=== PATIENT | female | born 1940 | race Hispanic/Latino ===

== ENCOUNTER → 2018-04-27 | Outpatient (CLI) | payer MEDICARE ==
--- NOTE | 2018-04-27 10:30 | Diagnostic Imaging Report ---
EXAMINATION: PA and lateral views of the chest. COMPARISON: None CLINICAL HISTORY: Chest pain, shortness of breath DISCUSSION: Lungs are well-inflated and without focal consolidation or pneumothorax. Trace blunting of the left posterior costophrenic sulcus may reflect pleural thickening or a trace effusion. Cardiomediastinal contour is within normal limits. No acute osseous abnormality. Surgical clips project over the upper abdomen on the lateral radiograph, likely related to prior cholecystectomy. IMPRESSION: Trace left pleural effusion versus focal basal pleural thickening. Otherwise no acute cardiopulmonary abnormality. Signed by: Dr. William Somers M.D. on 04/27/2018 10:27 AM
--- NOTE | 2018-04-27 11:16 | Diagnostic Imaging Report ---
EXAM: Complete Abdominal Ultrasound INDICATION: ^UPPER ABDOMINAL PAIN COMPARISON: None. TECHNIQUE: Transverse and longitudinal images of the upper abdomen were obtained. FINDINGS: Liver: Size: 15.5 cm in the right midclavicular line, normal Appearance: Increased echogenicity, smooth contour Mass: 4.8 x 3.5 x 3.8 cm anechoic cyst in the left hepatic lobe with partial thickness septations. No mural nodularities. Spleen: Size: 9.0 cm in length, normal Echogenicity: Normal Mass: No focal masses Gallbladder: Cholecystectomy Bile Ducts: Intrahepatic Ducts: No dilatation Extrahepatic Ducts: Common bile duct measures 0.3 cm, no dilatation Pancreas: Incompletely visualized due to overlying bowel gas, but no abnormality identified involving the visualized portions of the pancreas. Right Kidney: Size: 9.5 x 4.4 x 4.6 cm Echogenicity: Normal Parenchymal thickness: Normal Collecting System: No hydronephrosis Stone: None Cyst/Mass: None Left Kidney: Size: 10.2 x 4.9 x 4.1 cm Echogenicity: Normal Parenchymal thickness: Normal Collecting System: No hydronephrosis Stone: None Cyst/Mass: None Vessels: Aorta: Visualized portions are normal Inferior Vena Cava: Visualized portions are normal Main Portal Vein: 1.0 cm, normal size with hepatopetal flow. Free Fluid: No ascites or pleural effusion IMPRESSION: Diffuse hepatic steatosis without focal mass. 4.8 cm complicated left hepatic lobe cyst. Signed by: Dr. Aaron Rain M.D. on 04/27/2018 11:13 AM
== END ==
LOC: US 09:38
PROVIDERS: ATTEND Nurse Practitioner Family
DX: R07.9 Chest pain, unspecified (principal); R06.02 Shortness of breath; R10.10 Upper abdominal pain, unspecified
CPT/HCPCS: 71046; 76700

== ENCOUNTER → 2018-05-12 | Outpatient (CLI) | payer MEDICARE | LOC: CT 15:40 | PROVIDERS: ATTEND Internal Medicine Gastroenterology | DX: C22.0 Liver cell carcinoma (principal) ==

== ENCOUNTER 2018-11-13 20:43 | Emergency (ER) | payer MEDICARE, OTHER ==
[~2018-11-13] VITALS: Ht 152.4 cm; Wt 63.5 kg
--- OUTSIDE RECORDS SUMMARY | 2018-11-13 20:47 | XMS REPORT ---
Author Author [facility] Organization [facility] Address Unknown Phone Unavailable Care Team Providers Care Seasonal Recruiter Name Role Phone Eva KISER [facility] RANJAN Unavailable Unavailable Payers Payer Name Policy Type Policy Number Effective Date Expiration Date Problems This patient has no known problems. Allergies, Adverse Reactions, Alerts This patient has no known allergies or adverse reactions. Medications This patient has no known medications. Results Test Description Test Time Test Comments Text Results Atomic Results Result Comments - CT ABDOMEN W W/O CONTRAST 2018-05-15 20:16:00 Patient Name: LAMAR SEWELL Unit No: [id number] EXAMS: CPT CODE: [id number] CT ABDOMEN W W/O CONTRAST 95555 C3 TIME OF STUDY: 05/15/2018 1:36 PM REASON FOR EXAM: LIVER CELL CARCINOMA COMPARISON: None. TECHNIQUE: Helical pre and post contrast enhanced images were obtained through the abdomen and pelvis, hepatic protocol. Sagittal and coronal reformats were obtained and reviewed. One or more of the following radiation dose reduction techniques was used: automated exposure control, adjustment of mA and/or KV according to patient size, and/or utilization of iterative reconstruction technique. FINDINGS: CT Abdomen: The included lung bases are clear. The liver is enlarged, measuring 20.3 cm in craniocaudal dimension. There is diffuse fatty infiltration of the liver. There is a nonenhancing cystic structure in the left hepatic lobe measuring 4.7 x 4.2 cm. Gallbladder is surgically absent with mild postcholecystectomy du ctal ectasia. A 7 mm linear focus of hyperenhancement in the right hepatic lobe only seen on arterial phase imaging likely represents a focus of transient hepatic attenuation difference, as this does not persist on delayed imaging. The pancreas, kidneys, adrenal glands and spleen all have normal appearance. There is no mesenteric or retroperitoneal adenopathy. The bowel loops are nondilated. A normal appendix is not visualized. However, there is no inflammation in the right lower quadrant. There is no free fluid or free air. Vascular calcifications involving arterial vessels are noted. Degenerative features involve the osseous structures. CT Pelvis: The ureters and bladder are grossly normal. There is no free air, free fluid, loculated collection or adenopathy in the pelvis. The osseous and soft tissue structures are age appropriate. IMPRESSION: 1. Hepatomegaly with hepatic steatosis. 4.7 cm left hepatic lobe cyst. Subcentimeter focus of transient hepatic attenuation difference. No mass lesions identified. at 2016 Reported and signed by: Javan Ronquillo MD [facility] NAME: LAMAR SEWELL Giuseppe PHYS: Preet Quiroz MD [place] [id number] : 1940 AGE: 78 SEX: F LOC: [employer] PHONE #: [phone] EXAM DATE: 05/15/2018 STATUS: REG CLI FAX #: [phone] RAD #: D/C DT PAGE 1 Signed Report (CONTINUED) Patient Name: LAMAR SEWELL Unit No: [id number] EXAMS: CPT CODE: [id number] CT ABDOMEN W W/O CONTRAST 97952 <Continued> CC: AGUSTO ZAPATA; Arya Cruz MD; Preet Sharp; Melani Ricardo Technologist: RT Andres(R) CTDI: DLP: Trnscrpt: 05/15/2018 (2016) [email or web address] [facility] NAME: LAMAR SEWELL Giuseppe PHYS: [place] [address] : 1940 AGE: 78 SEX: F LOC: [facility] PHONE #: [phone] EXAM DATE: 05/15/2018 STATUS: REG CLI FAX #: [phone] RAD #: D/C DT PAGE 2 Signed Report Patient Name: LAMAR SEWELL Unit No: [id number] EXAMS: CPT CODE: [id number] CT ABDOMEN W W/O CONTRAST 94794 <Continued> Orig Print D/T: S: 05/15/2018 (2019) [facility] NAME: LAMAR SEWELL [address] [place] PHYS: [place] [address] : 1940 AGE: 78 SEX: F LOC: [facility] PHONE #: [phone] EXAM DATE: 05/15/2018 STATUS: REG CLI FAX #: [phone] RAD #: D/C DT PAGE 3 Signed Report US ABDOMEN COMPLETE 2018-04-27 11:11:00 [place] [address] Patient Name: LAMAR SEWELL MR #: [id number] : 1940 Age/Sex: 78/F Req #: [id number] Adm Physician: Ordered by: RANJAN KISER [facility] Report #: [id number] Location: US Room/Bed: Procedure: [id number] US/US ABDOMEN COMPLETE Exam Date: Exam Time: REPORT STATUS: Signed EXAM: Complete Abdominal Ultrasound INDICATION: UPPER ABDOMINAL PAIN COMPARISON: None. TECHNIQUE: Transverse and longitudinal images of the upper abdomen were obtained. FINDINGS: Liver: Size: 15.5 cm in the right midclavicular line, normal Appearance: Increased echogenicity, smooth contour Mass: 4.8 x 3.5 x 3.8 cm anechoic cyst in the left hepatic lobe with partial thickness septations. No mural nodularities. Spleen: Size: 9.0 cm in length, normal Echogenicity: Normal Mass: No focal masses Gallbladder: Cholecystectomy Bile Ducts: Intrahepatic Ducts: No dilatation Extrahepatic Ducts: Common bile duct measures 0.3 cm, no dilatation Pancreas: Incompletely visualized due to overlying bowel gas, but no abnormality identified involving the visualized portions of the pancreas. Right Kidney: Size: 9.5 x 4.4 x 4.6 cm Echogenicity: Normal Parenchymal thickness: Normal Collecting System: No hydronephrosis Stone: None Cyst/Mass: None Left Kidney: Size: 10.2 x 4.9 x 4.1 cm Echogenicity: Normal Parenchymal thickness: Normal Collecting System: No hydronephrosis Stone: None Cyst/Mass: None Vessels: Aorta: Visualized portions are normal Inferior Vena Cava: Visualized portions are normal Main Portal Vein: 1.0 cm, normal size with hepatopetal flow. Free Fluid: No ascites or pleural effusion IMPRESSION: Diffuse hepatic steatosis without focal mass. 4.8 cm complicated left hepatic lobe cyst. Signed by: Dr. Aaorn Meneses M.D. on 04/27/2018 11:13 AM Dictated By: AARON MEENSES MD 1113 Transcribed By: COLLEEN on 04/27/18 1113 COPY TO: RANJAN KISER [facility] CHEST 2 VIEWS 2018-04-27 10:25:00 [place] [address] Patient Name: LAMAR SEWELL MR #: [id number] : 1940 Age/Sex: 78/F Req #: [id number] Adm Physician: Ordered by: RANJAN KISER [facility] Report #: [id number] Location: Room/Bed: Procedure: [id number] DX/CHEST 2 VIEWS Exam Date: 04/27/18 Exam Time: 0946 REPORT STATUS: Signed EXAMINATION: PA and lateral views of the chest. CO MPARISON: None CLINICAL HISTORY: Chest pain, shortness of breath DISCUSSION: Lungs are well-inflated and without focal consolidation or pneumothorax. Trace blunting of the left posterior costophrenic sulcus may reflect pleural thickening or a trace effusion. Cardiomediastinal contour is within normal limits. No acute osseous abnormality. Surgical clips project over the upper abdomen on the lateral radiograph, likely related to prior cholecystectomy. IMPRESSION: Trace left pleural effusion versus focal basal pleural thickening. Otherwise no acute cardiopulmonary abnormality. Signed by: Dr. Judit Mace M.D. on 04/27/2018 10:27 AM Dictated By: JUDIT MACE MD 1027 Transcribed By: COLLEEN on 04/27/18 1027 COPY TO: RANJAN KISER [facility] MAMMO SCREENING CLINICAL INDICATION: This is a routine annual screening mammogram. The patient has no complaints.MODALITY: Siemens Inspiration Full Field Digital MammographyTECHNIQUE: Digital acquisition of the breasts is performed on the ACR accredited Full Field Digital Mammography Unit. Computer Assisted Detection (CAD) is then accomplished using Doblet Technology. Imaging of the bilateral breasts is performed.FINDINGS:COMPARISON STUDY: NoneThere are scattered fibroglandular tissues in both breasts.There are no suspicious masses, calcifications or architectural distortion in either breast.IMPRESSION:No mammo graphic evidence of malignancy. RECOMMENDATION: Routine annual screening mammogram in 1 year is recommended.Category: BIRADS 1 - Negative. For internal use only BIRAD:S1 CR - XRAY XRAY DEXA BONE DENSITY CLINICAL INDICATION: Z13.820 Encounter for screening for osteoporosis TECHNIQUE: Bone densitometry is performed. Imaging of the spine and left hip are performed. Quantitative analysis is accomplished.FINDINGS:COMPARISON: NoneThe BMD at the left femoral neck is 0.869 gms/cm.sq. This is consistent with young adult T-score of -0.9 and age matched Z-score of 1.1.Average bone mineral density of L1 - L4 is 0.920 gms/cm.sq. This is consistent with young adult T-score of -2.2 and age matched Z-score of -0.1.IMPRESSION:WHO diagnostic category is osteopenia based upon lumbar spine.Recommendation: 2-year follow-up
--- OUTSIDE RECORDS SUMMARY | 2018-11-13 20:47 | XMS REPORT | Clinical Summary ---
Author Author [facility] Organization [facility] Address Unknown Phone Unavailable Care Team Providers Care Engine Setter Name Role Phone Estephania Johnson MD PCP Allergies No Known Allergies Medications End Date Status Medication Sig Dispensed Refills Start Date 04/18/2018 ondansetron (ZOFRAN) 4 MG Take 1 tablet 20 tablet 0 tablet (4 mg total) 9 by mouth every 6 (six) hours for 5 days. Active Problems Not on file Encounters Care Team Description Date Type Specialty Hugo Warner MD Generalized abdominal pain (Primary Dx); Non-intractable vomiting with nausea, unspecified vomiting type 04/13/2018 Emergency Emergency Medicine after 11/12/2017 Social History Date Tobacco Use Types Packs/Day Years Used Never Smoker Smokeless Tobacco: Never Used Alcohol Use Drinks/Week oz/Week Comments No Alcohol Habits Answer Date Recorded How often do you have a drink containing alcohol? Never 04/13/2018 How many drinks containing alcohol do you have on Not asked a typical day when you are drinking? How often do you have six or more drinks on one Not asked occasion? Sex Assigned at Date Recorded Not on file Industry Job Start Date Occupation Not on file Not on file Not on file Travel End Travel History Travel Start No recent travel history available. Last Filed Vital Signs Time Taken Vital Sign Reading 04/13/2018 11:11 PM HOSIERY PAIRER Blood Pressure 168/70 04/13/2018 11:11 PM HOSIERY PAIRER Pulse 70 04/13/2018 4:55 PM HOSIERY PAIRER Temperature 36.6 C (97.9 F) 04/13/2018 11:11 PM HOSIERY PAIRER Respiratory Rate 16 04/13/2018 11:11 PM HOSIERY PAIRER Oxygen Saturation 99% - Inhaled Oxygen - Concentration - Weight - 04/13/2018 4:55 PM HOSIERY PAIRER Height 152.4 cm (5') - Body Mass Index - Plan of Treatment Health Maintenance Due Date Last Done Comments COLONOSCOPY SCREENING 1992 SHINGLES VACCINES (#1) 1992 65+ PNEUMOCOCCAL VACCINE 2007 (1 of 2 - PCV13) INFLUENZA VACCINE 11/05/2018 Procedures Comments Procedure Name Priority Date/Time Associated Diagnosis ED REFERRAL TO [facility] 04/13/2018 EPISCOPALIAN PHYSICIAN 10:59 PM HOSIERY PAIRER ORGANIZATION CT ABDOMEN PELVIS W STAT 04/13/2018 CONTRAST 10:21 PM HOSIERY PAIRER HCG QUALITATIVE, URINE STAT 04/13/2018 SCREEN 8:08 PM HOSIERY PAIRER URINALYSIS SCREEN AND STAT 04/13/2018 MICROSCOPY, WITH REFLEX 8:08 PM HOSIERY PAIRER TO CULTURE URINE CULTURE STAT 04/13/2018 8:00 PM HOSIERY PAIRER ESTIMATED GFR STAT 04/13/2018 5:35 PM HOSIERY PAIRER LIPASE LEVEL STAT 04/13/2018 5:35 PM HOSIERY PAIRER COMPREHENSIVE METABOLIC STAT 04/13/2018 PANEL 5:35 PM HOSIERY PAIRER HC COMPLETE BLD COUNT STAT 04/13/2018 W/AUTO DIFF 5:35 PM HOSIERY PAIRER ECG 12-LEAD STAT 04/13/2018 5:01 PM HOSIERY PAIRER after 11/12/2017 Results * CT Abdomen Pelvis W Contrast (04/13/2018 10:21 PM HOSIERY PAIRER) Specimen Narrative Performed At Examination:CT ABDOMEN PELVIS W CONTRAST [facility] Clinical History: Nauseavomiting, Abdominal painLUQsuprapubic Comparison: None. Findings: CT scans are performed using radiation dose reduction techniques.Technical factors are evaluated and adjusted to ensure appropriate moderation of exposure.Automated dose management technology is applied to adjust radiation exposure while achieving a diagnostic quality image. CT scan of the abdomen and pelvis was performed after intravenous contrast. The liver is diffusely low in density. There is a large cyst in the left lobe of the liver measuring 4.7 cm. The spleen, pancreas, and adrenal glands are unremarkable. The patient is status post cholecystectomy. The kidneys show no hydronephrosis or urinary calculus. Right tiny subcentimeter cyst is noted. Moderate fecal material is seen throughout the colon. No bowel wall thickening or fat stranding is seen. The appendix is not visualized. No bowel dilatation is seen. No free air or fluid is seen. Urinary bladder is unremarkable. The visualized lung bases are clear. IMPRESSION: 1. Fatty liver. 2. Otherwise no acute abnormality identified in abdomen or pelvis. [facility]-[id number] Procedure Note Hm Interface, Radiology Results Incoming - 04/13/2018 10:33 PM HOSIERY PAIRER Examination: CT ABDOMEN PELVIS W CONTRAST Clinical History: Nausea vomiting, Abdominal pain LUQ suprapubic Comparison: None. Findings: CT scans are performed using radiation dose reduction techniques. Technical factors are evaluated and adjusted to ensure appropriate moderation of exposure. Automated dose management technology is applied to adjust radiation exposure while achieving a diagnostic quality image. CT scan of the abdomen and pelvis was performed after intravenous contrast. The liver is diffusely low in density. There is a large cyst in the left lobe of the liver measuring 4.7 cm. The spleen, pancreas, and adrenal glands are unremarkable. The patient is status post cholecystectomy. The kidneys show no hydronephrosis or urinary calculus. Right tiny subcentimeter cyst is noted. Moderate fecal material is seen throughout the colon. No bowel wall thickening or fat stranding is seen. The appendix is not visualized. No bowel dilatation is seen. No free air or fluid is seen. Urinary bladder is unremarkable. The visualized lung bases are clear. IMPRESSION: 1. Fatty liver. 2. Otherwise no acute abnormality identified in abdomen or pelvis. [facility]-[id number] Performing Organization Address City/State/Zipcode Phone Number [facility] [address] [place] [address] * Urinalysis screen and microscopy, with reflex to culture (04/13/2018 8:08 PM HOSIERY PAIRER) Specimen site Clean catch [facility] Color, UA Straw [facility] Appearance, UA Clear [facility] Specific 1.013 1.001 - 1.035 [place] gravity, [facility] pH, UA 5.0 5.0 - 8.5 [facility] Protein, UA Negative Negative [facility] Glucose, UA Negative Negative [facility] Ketones, UA Negative Negative [facility] Bilirubin, UA Negative Negative [facility] Blood, UA Negative Negative [facility] Nitrite, UA Negative Negative [facility] Urobilinogen, <2.0 <2.0 [place] UA [facility] Leukocyte Negative Negative [place] esterase, UA [facility] Epithelial <1 /HPF [place] cells, [facility]A [facility] WBC, UA 2 0 - 4 /HPF [facility] RBC, UA 1 0 - 5 /HPF [facility] Bacteria, UA Few None seen [facility] Yeast, UA None seen [facility] Yeast with None seen [place] pseudohyphae, [facility] Specimen Urine Performing Organization Address City/[facility] Phone Number [facility] [place] [address] PATHOLOGY AND GENOMIC MEDICINE [address] * hCG qualitative, urine screen (04/13/2018 8:08 PM HOSIERY PAIRER) Pathologist [facility] hCG NegativeComment: Sensitivity [place] qualitative, of HCG test: 25 mIU/mL [facility] Specimen Urine Performing Organization Address [facility] [place] [place] Phone Number [facility] [place] [address] PATHOLOGY AND [facility] MEDICINE [address] * Urine culture (04/13/2018 8:00 PM HOSIERY PAIRER) [facility] Urine culture SEE COMMENTComment: [place] Bacteriuria screen negative. [facility] Specimen Performing Organization Address [facility] [place] [place] Phone Number [facility] [place] [address] PATHOLOGY AND [facility] MEDICINE [address] * Estimated GFR (04/13/2018 5:35 PM HOSIERY PAIRER) [facility] Estimated GFR 74 mL/min/1.73 m2 [place] Comment: [facility] rpretation G1 >=90 Normal or high G2 60-89Mildly decreased [id number] Mildly to moderately decreased [id number] Moderately to severely decreased G4 15-29Severely decreased G5 <15Kidney failure The eGFR was calculated using the Chronic Kidney Disease Epidemiology Collaboration (CKD-EPI) equation. Interpretation is based on recommendations of the National Kidney Foundation-Kidney Disease Outcomes Quality Initiative (NKF-KDOQI) published in 2014. Specimen Plasma specimen Performing Organization Address City/[facility]/Zipcode Phone Number [facility] DEPARTMENT OF [address] [place] [address] PATHOLOGY AND [facility] MEDICINE [address] * CBC with platelet and differential (04/13/2018 5:35 PM HOSIERY PAIRER) Pathologist [facility] WBC 7.43 4.50 - 11.00 k/uL [facility] RBC 4.62 4.20 - 5.50 m/uL [facility] HGB 14.5 12.0 - 16.0 g/dL [facility] HCT 43.6 37.0 - 47.0 % [facility] MCV 94.4 82.0 - 100.0 fL [facility] MCH 31.4 27.0 - 34.0 pg [facility] MCHC 33.3 31.0 - 37.0 g/dL [facility] RDW - SD 43.8 37.0 - 55.0 fL [facility] MPV 10.9 8.8 - 13.2 fL [facility] Platelet count 280 150 - 400 k/uL [facility] Nucleated RBC 0.00 /100 WBC [facility] Neutrophils 51.6 39.0 - 69.0 % [facility] Lymphocytes 37.6 25.0 - 45.0 % [facility] Monocytes 8.5 0.0 - 10.0 % [facility] Eosinophils 1.5 0.0 - 5.0 % [facility] Basophils 0.7 0.0 - 1.0 % [facility] Immature 0.1Comment: "Immature 0.0 - 1.0 % [place] granulocytes granulocytes" (promyelocytes, EPISCOPALIAN myelocytes, metamyelocytes) HOSPITAL Specimen Blood Performing Organization Address City/State/Zipcode Phone Number [facility] [place] [address] PATHOLOGY AND [facility] MEDICINE [address] * Lipase level (04/13/2018 5:35 PM HOSIERY PAIRER) Pathologist [facility] Lipase 165 (H) 13 - 60 U/L [facility] Specimen Plasma specimen Performing Organization Address City/[facility]/Zipcode Phone Number [facility] DEPARTMENT [address] [address] PATHOLOGY AND GENOMIC MEDICINE [address] * Comprehensive metabolic panel (04/13/2018 5:35 PM HOSIERY PAIRER) Sodium 137 135 - 148 mEq/L [facility] Potassium 5.0 3.5 - 5.0 mEq/L [facility] Chloride 100 98 - 112 mEq/L [facility] CO2 27 24 - 31 mEq/L [facility] Anion gap 10@ANIO 7 - 15 mEq/L [facility] BUN 15 8 - 23 mg/dL [facility] Creatinine 0.78 0.50 - 0.90 mg/dL [facility] Glucose 131 (H) 65 - 99 mg/dL [facility] Calcium 9.9 8.8 - 10.2 mg/dL [facility] Protein 7.7 6.3 - 8.3 g/dL [place] Comment: [facility] 4.6-7.0 g/dL 1 week 4.4-7.6 g/dL 7 months-1year 5.1-7.3 g/dL 1-2 years5.6-7 .5 g/dL >3 years6.0-8 .0 g/dL 18-150 6.3-8.3 g/dL Albumin 3.9 3.5 - 5.0 g/dL [facility] A/G ratio 1.0 0.7 - 3.8 [facility] Alkaline 66 35 - 104 U/L [place] phosphatase [facility] AST 28 10 - 35 U/L [facility] ALT 44 5 - 50 U/L [facility] Total bilirubin 0.3 0.0 - 1.2 mg/dL [facility] Specimen Plasma specimen Performing Organization Address City/State/Zipcode Phone Number [facility] DEPARTMENT OF [address] [place] [address] PATHOLOGY AND GENOMIC MEDICINE [address] * ECG 12 lead (04/13/2018 5:01 PM HOSIERY PAIRER) Ventricular 74 [facility] MUSE rate Atrial rate 74 [facility] MUSE WI interval 158 [facility] M[facility] QRSD interval 68 [facility] MUSE QT interval 398 [facility] QTC interval 441 [facility] MUSE P axis 1 67 [facility] MUSE QRS axis 1 -1 [facility] MUSE T wave axis 46 [facility]USE EKG impression Normal sinus rhythm-Low [facility] M[facility] voltage QRS-Borderline ECG-- Specimen Narrative Performed At Performing Organization Address City/State/Zipcode Phone Number [facility] [address] [place] [address] after 11/12/2017 Insurance Type Payer Benefit Subscriber ID Effective Phone Address Plan / Dates Group HMO UHC MEDICARE UHC xxxxxxxxx [id number] [employer] (MEDICARE- MEDICAID PLAN) Advance Directives Patient has advance care planning documents on file. For more information, talat aguilar contact: Chente Pemberton [address] [place] [address]
--- OUTSIDE RECORDS SUMMARY | 2018-11-13 20:47 | XMS REPORT | Clinical Summary ---
Author Author [facility] Address Unknown Phone Unavailable Care Team Providers Care Veneer Glue Spreader Name Role Phone PCP Unavailable Allergies Not on File Medications Not on file Active Problems Not on file Social History Date Tobacco Use Types Packs/Day Years Used Never Assessed Sex Assigned at Date Recorded Not on file Industry Job Start Date Occupation Not on file Not on file Not on file Travel End Travel History Travel Start No recent travel history available. Last Filed Vital Signs Not on file Plan of Treatment Not on file Results Not on fileafter 11/12/2017 Insurance Payer Benefit Subscriber ID Type Phone Address Plan / Group OTHER-COMMERCIAL GENERIC xxxxxxxxx COMMERCIAL OTHER-COMMERCIAL GENERIC xxxxxxxxx COMMERCIAL [id number] [facility] (Home) [id number] [place] [id number]
[2018-11-13 21:23] LABS: BASOPHILS % 0.5 % (0.0-1.0); EOSINOPHILS # (AUTO) 0.1 (0.0-0.4); EOSINOPHILS % 1.4 % (0.0-6.0); HEMATOCRIT 42.5 % (34.2-44.1); HEMOGLOBIN 14.8 g/dL (12.0-16.0); LYMPHOCYTES % 38.4 % (18.0-39.1); MEAN CORPUSCULAR HEMOGLOBIN 31.7 pg (28-32); MEAN CORPUSCULAR HGB CONC 34.8 g/dL (31-35); MONOCYTES # (AUTO) 0.6 (0.2-0.8); MONOCYTES % 7.6 % (4.4-11.3); NEUTROPHILS # (AUTO) 4.1 (2.1-6.9); NEUTROPHILS % 51.8 % (38.7-80.0); PLATELET COUNT 268 x10e3/uL (140-360); RED BLOOD COUNT 4.67 x10e6/uL (3.6-5.1); RED CELL DISTRIBUTION WIDTH 12.7 % (11.7-14.4)
[2018-11-13 21:24] LABS: BILIRUBIN,URINE NEGATIVE (NEGATIVE); CLARITY,URINE CLEAR (CLEAR); COLOR,URINE YELLOW (YELLOW); KETONES,URINE NEGATIVE (NEGATIVE); LEUKOCYTE ESTERASE ,URINE SMALL (NEGATIVE); NITRITE,URINE NEGATIVE (NEGATIVE); PROTEIN,URINE DIPSTICK NEGATIVE (NEGATIVE); URINE UROBILINOGEN 0.2 mg/dL (0.2 - 1)
[2018-11-13 21:44] LABS: BACTERIA,URINE FEW /HPF; EPITHELIAL CELLS,URINE FEW /LPF; INR 0.88; PROTHROMBIN TIME 12.4 seconds (11.9-14.5)
[2018-11-13 21:45] LABS: MUCUS,URINE FEW (RARE); PARTIAL THROMBOPLASTIN TIME 27.1 seconds (23.8-35.5)
[2018-11-13 21:55] LABS: ALANINE AMINOTRANSFERASE 48 IU/L (0-55); ALBUMIN/GLOBULIN RATIO 1.3 (0.8-2.0); ALKALINE PHOSPHATASE 72 IU/L (40-150); ANION GAP 13.8 mmol/L (8-16); BLOOD UREA NITROGEN 13 mg/dL (7-26); BUN/CREATININE RATIO 16 (6-25); CALCIUM 9.3 mg/dL (8.4-10.2); CARBON DIOXIDE 24 mmol/L (22-29); CHLORIDE 106 mmol/L (98-107); CREATINE KINASE 86 IU/L (29-168); EST GLOMERULAR FILTRATION RATE > 60 ML/MIN (60-); GLUCOSE 128 mg/dL (74-118); LIPASE 44 U/L (8-78); POTASSIUM 3.8 mmol/L (3.5-5.1); SODIUM 140 mmol/L (136-145)
[2018-11-13] MEDS ORDERED: SODIUM CHLORIDE 0.9% 50ML 50 ML ONE (22:07)
[2018-11-13] MEDS ORDERED: IOPAMIDOL 370 MG/ML 200 ML INFUS..BTL INJ ONE (22:07)
--- NOTE | 2018-11-13 22:41 | Diagnostic Imaging Report ---
ADDENDUM #1 Addendum: 5.0 x 3.7 cm well-circumscribed fluid attenuation nonenhancing in hepatic segment III is consistent with a simple cyst. No further follow-up for diagnostic imaging is indicated. The liver is enlarged, measuring 16.3 cm in the right midclavicular line shows marked diffuse steatosis. Signed by: Dr. John Hill M.D. on 12/22/2018 9:52 PM ORIGINAL REPORT EXAM: CT Abdomen and Pelvis WITH contrast INDICATION: Abdominal pain distention. COMPARISON: None. Ultrasound of abdomen dated 04/27/2018. TECHNIQUE: Abdomen and pelvis were scanned utilizing a multidetector helical scanner from the lung base to the pubic symphysis after administration of IV contrast. Coronal and sagittal reformations were obtained. Routine protocol was performed. Scan was performed when during portal venous phase. IV CONTRAST: 100 cc Isovue 300 ORAL CONTRAST: Water RADIATION DOSE: Total DLP: 357.65 mGy*cm Estimated effective dose: (DLP x 0.015 x size factor) mSv COMPLICATIONS: None FINDINGS: LINES and TUBES: None. LOWER THORAX: Unremarkable HEPATOBILIARY: The liver is diffuse hypodense compared to the spleen, consistent with diffuse hepatic diffuse hepatic steatosis. 5.0 x 3.7 cm attenuation lesion in segment 3 of the liver consistent with a cyst. No biliary ductal dilation. GALLBLADDER: There are cholecystectomy clips. SPLEEN: No splenomegaly. PANCREAS: No focal masses or ductal dilatation. ADRENALS: No adrenal nodules KIDNEYS/URETERS: Kidneys enhance symmetrically. No hydronephrosis. No cystic or solid mass lesions. No stones. GI TRACT: No abnormal distention, wall thickening, or evidence of bowel obstruction. Appendix is absent. PELVIC ORGANS/BLADDER: The uterus is absent. Bilateral adnexa are unremarkable. LYMPH NODES: No lymphadenopathy. VESSELS: Unremarkable. PERITONEUM / RETROPERITONEUM: No free air or fluid. Received abdominal distention is due to large volume of the cervical BONES: Unremarkable. SOFT TISSUES: Unremarkable. IMPRESSION: 1. No acute abdominal pelvic abnormality. No evidence of obstruction or ascites. Abdominal distention is due to large volume of visceral fat. 2. Hepatic steatosis. 5.0 cm left hepatic lobe cyst. 3. Status post cholecystectomy. No significant biliary dilatation. Signed by: Dr. Estuardo Cleveland M.D. on 11/14/2018 12:51 AM
[2018-11-14 00:20] VITALS: BP 156/71
== END 2018-11-14 00:22 | disposition home or self-care (01) ==
LOC: ER 20:43
DX: R10.10 Upper abdominal pain, unspecified (principal); K76.89 Other specified diseases of liver
CPT/HCPCS: 36415; 74177; 80053; 81001; 82550; 82553; 83690; 84484; 85025; 85610; 85730; 93005; 99284; Q9967

== ENCOUNTER → 2020-06-29 | Outpatient (CLI) | payer MEDICARE, OTHER | LOC: MAMMO 09:15 | PROVIDERS: ATTEND General Practice | DX: N64.4 Mastodynia (principal) | CPT/HCPCS: 77066 ==

== ENCOUNTER → 2021-07-20 | Outpatient (CLI) | payer MEDICARE, OTHER | LOC: MRI 11:27 | PROVIDERS: ATTEND General Practice | DX: F03.90 Unspecified dementia, unspecified severity, without behavioral disturbance, psychotic disturbance, mood disturbance, and anxiety (principal) | CPT/HCPCS: 70551 ==